=== PATIENT | male | born 1960 | race African-American/Black ===

== ENCOUNTER 2021-10-17 12:23 | Emergency (ER) | payer SELFPAY ==
[~2021-10-17] VITALS: Ht 175.3 cm; Wt 68.0 kg
[2021-10-17 12:26] VITALS: BP 116/90
== END 2021-10-17 15:50 | disposition left against medical advice (07) ==
LOC: ER 12:23
DX: Z53.21 Procedure and treatment not carried out due to patient leaving prior to being seen by health care provider (principal)